=== PATIENT | male | born 1980 ===

== ENCOUNTER 2021-03-20 11:11 | Emergency (ER) ==
[2021-03-20] MEDS ORDERED: Morphine 4 MG/ML VIAL ONE (12:38)
[2021-03-20] MEDS ORDERED: Ketorolac Tromethamine 30 MG/ML VIAL ONE (12:39)
[2021-03-20] MEDS ORDERED: Ondansetron ODT 4 MG TAB ONE (12:39)
== END 2021-03-20 13:17 | disposition home or self-care (01) ==
LOC: ERS 11:11
DX: M54.50 Low back pain, unspecified (principal); Z79.899 Other long term (current) drug therapy
CPT/HCPCS: 96372; 99283; J1885; J2270; Q0162